=== PATIENT | female | born 1955 | race Caucasian/White ===

== ENCOUNTER 2025-03-20 14:34 | Inpatient (IN) | payer OTHER ==
[~2025-03-20] VITALS: Ht 160 cm; Wt 74.8 kg
[2025-03-20] MEDS: VANCOMYCIN 1G PREMIX 200 ML IV ONE (15:16)
[2025-03-20] MEDS: SODIUM CHLORIDE 0.9% 500 ML IV ONE (15:16)
[2025-03-20 15:47] LABS: INR 1.2
[2025-03-20 15:53] LABS: BASOPHILS % 0.6 % (0.0-2.0); EOSINOPHILS % 0.5 % (0.0-5.0); LYMPHOCYTES % 12.3 % (20.0-50.0); MEAN PLATELET VOLUME 11.4 fl (7.4-10.4); MONOCYTES % 8.1 % (2.0-8.0); NEUTROPHILS % 78.5 % (40.0-76.0); PLATELET 127 x1000/uL (130-400); RED BLOOD CELL COUNT 1.53 mill/uL (4.2-5.4); RED CELL DISTRIBUTION WIDTH 18.1 % (11.6-14.6)
[2025-03-20 15:54] LABS: PROTEIN TOTAL 6.0 g/dL (6.0-8.3); TROPONIN I HIGH SENSITIVITY 28 ng/L (3.0-34); UREA NITROGEN BLOOD 59 mg/dL (9-23)
[2025-03-20 15:55] LABS: ASPARTATE AMINOTRANSFERASE 28 IU/L (<34)
[2025-03-20 15:56] LABS: BILIRUBIN DIRECT 0.7 mg/dL (<=3.0); BILIRUBIN TOTAL 1.0 mg/dL (0.1-1.0)
[2025-03-20 16:06] LABS: CREATININE 6.4 mg/dL (0.6-1.0)
[2025-03-20 16:20] LABS: HEMATOCRIT. 15.0 % (36.0-48.0); HEMOGLOBIN. 4.8 g/dL (12.0-16.0)
[2025-03-20 17:57] LABS: TROPONIN I HIGH SENSITIVITY 26 ng/L (3.0-34)
[2025-03-20] MEDS ORDERED: IPRATROPIUM/ALBUTEROL 0.5-3(2.5)MG/3ML NEB HHN PRN (20:00)
[2025-03-20] MEDS ORDERED: DEXTROSE 50% WATER 50ML SYRINGE IV PRN (20:00)
[2025-03-20] MEDS ORDERED: GUAIFENESIN 200MG/10ML SUGAR FREE UDC PO PRN (20:00)
[2025-03-20] MEDS ORDERED: ACETAMINOPHEN 325MG TABLET PO PRN (20:00)
[2025-03-20] MEDS ORDERED: DOCUSATE SODIUM 100MG CAPSULE PO PRN (20:00)
[2025-03-20] MEDS ORDERED: ONDANSETRON HCL 4MG/2ML INJ IV PRN (20:00)
[2025-03-20] MEDS ORDERED: INSULIN LISPRO 100 UNITS/ML SUBCUT SCH (21:00)
[2025-03-20] MEDS: BLOOD SUGAR DIAGNOSTIC STRIP TEST SCH (21:00)
[2025-03-21] VITALS (22 sets, daily range): BP systolic 61–126; BP diastolic 21–79; PULSE 48–59; RESP 13–20; TEMP 36.114–36.55848; O2SAT 96–100
[2025-03-21] MEDS: INSULIN LISPRO 100 UNITS/ML SUBCUT SCH (00:34)
[2025-03-21] MEDS: CEFTRIAXONE 2GM/50ML 50 ML IV SCH (04:32)
[2025-03-21] MEDS: EPOETIN ALFA-EPBX 10,000 UNITS/ML VIAL SUBCUT SCH (04:43)
[2025-03-21] MEDS ORDERED: LACTULOSE 20G/30ML UDC PO SCH (06:00)
[2025-03-21] MEDS ORDERED: SODIUM CHLORIDE 0.9% 250 ML IV NR (08:00)
[2025-03-21] MEDS: MIDODRINE HCL 5MG TABLET PO SCH ×2 (08:05→09:00)
[2025-03-21 08:35] LABS: T4 FREE 1.48 ng/dL (0.89-1.76)
[2025-03-21 08:36] LABS: TRIGLYCERIDE 106 mg/dL (0-150); UREA NITROGEN BLOOD 56 mg/dL (9-23)
[2025-03-21 08:37] LABS: LDL CHOLESTEROL 40 mg/dL (5-100)
[2025-03-21 08:38] LABS: PHOSPHORUS 7.2 mg/dL (2.5-4.9)
[2025-03-21 08:45] LABS: CREATININE 6.6 mg/dL (0.6-1.0)
[2025-03-21 09:32] LABS: BASOPHILS % 0.9 % (0.0-2.0); EOSINOPHILS % 1.1 % (0.0-5.0); LYMPHOCYTES % 10.7 % (20.0-50.0); MEAN PLATELET VOLUME 11.4 fl (7.4-10.4); MONOCYTES % 9.7 % (2.0-8.0); NEUTROPHILS % 77.6 % (40.0-76.0); PLATELET 106 x1000/uL (130-400); RED BLOOD CELL COUNT 1.93 mill/uL (4.2-5.4); RED CELL DISTRIBUTION WIDTH 17.4 % (11.6-14.6)
[2025-03-21 09:38] LABS: HEMATOCRIT. 18.9 % (36.0-48.0); HEMOGLOBIN. 6.2 g/dL (12.0-16.0)
[2025-03-21] MEDS: PANTOPRAZOLE SODIUM 40 MG/VIAL IV SCH ×2 (10:03→20:56)
[2025-03-21] MEDS: LACTULOSE 20G/30ML UDC NG SCH ×2 (10:04→19:40)
[2025-03-21] MEDS: RIFAXIMIN 550 MG TABLET PO SCH (10:04)
[2025-03-21 11:32] LABS: TROPONIN I HIGH SENSITIVITY 37 ng/L (3.0-34)
[2025-03-21] MEDS ORDERED: OCTREOTIDE 1,000 MCG in SODIUM CHLORIDE 0.9% 98 ML IV SCH (13:30)
[2025-03-21] MEDS: FUROSEMIDE 40MG/4ML VIAL IVP NR (14:00)
[2025-03-21 17:32] LABS: BG BASE EXCESS -1.8 mmol/L (-2.0-3.0); BG CARBOXYHEMOGLOBIN 1.7 % (0.5-1.5); BG DEOXYHEMOGLOBIN 2.6 % (0.0-5.0); BG FRACTION INSPIRED OXYGEN 21; BG HCO3 ACT 21.5 mmol/L (21.0-28.0); BG METHEMOGLOBIN 0.3 % (0.5-1.5); BG OXYGEN SATURATION 97.3 % (94.0-98.0); BG OXYHEMOGLOBIN 95.4 % (94.0-98.0); BG PCO2 31.1 mmHg (32.0-45.0); BG PH 7.458 (7.350-7.450); BG PO2 88.5 mmHg (83.0-108.0); BG SAMPLE SITE LEFT BRACHIAL; BG TOTAL HEMOGLOBIN 9.0 g/dL (12.0-16.0); BG VENT MODE ROOM AIR
[2025-03-21 19:27] LABS: BASOPHILS % 0.8 % (0.0-2.0); EOSINOPHILS % 1.2 % (0.0-5.0); HEMATOCRIT. 25.7 % (36.0-48.0); HEMOGLOBIN. 8.4 g/dL (12.0-16.0); LYMPHOCYTES % 9.0 % (20.0-50.0); MEAN PLATELET VOLUME 10.9 fl (7.4-10.4); MONOCYTES % 10.3 % (2.0-8.0); NEUTROPHILS % 78.7 % (40.0-76.0); PLATELET 95 x1000/uL (130-400); RED BLOOD CELL COUNT 2.78 mill/uL (4.2-5.4); RED CELL DISTRIBUTION WIDTH 17.2 % (11.6-14.6)
[2025-03-21 19:45] LABS: LACTATE DEHYDROGENASE 219 IU/L (120-246)
[2025-03-21 19:46] LABS: PROTEIN TOTAL 6.3 g/dL (6.0-8.3); UREA NITROGEN BLOOD 62 mg/dL (9-23)
[2025-03-21 19:47] LABS: ASPARTATE AMINOTRANSFERASE 23 IU/L (<34)
[2025-03-21 19:48] LABS: BILIRUBIN TOTAL 2.0 mg/dL (0.1-1.0); PHOSPHORUS 7.6 mg/dL (2.5-4.9)
[2025-03-21 19:50] LABS: FOLIC ACID (FOLATE) SERUM 3.82 ng/mL (>5.38)
[2025-03-21 19:51] LABS: VITAMIN B12 SERUM 1413 pg/mL (211-911)
[2025-03-21 20:15] LABS: CREATININE 6.7 mg/dL (0.6-1.0)
[2025-03-21 20:22] LABS: HEPATITIS A AB IGM NEGATIVE (Negative)
[2025-03-21 20:23] LABS: HEPATITIS B CORE AB IGM NEGATIVE (Negative); HEPATITIS C AB NON REACTIVE (Neg) (Negative)
[2025-03-21 20:24] LABS: HEPATITIS A AB IGM NEGATIVE (Negative); HEPATITIS B CORE AB IGM NEGATIVE (Negative)
[2025-03-21 20:25] LABS: HEPATITIS C AB NON REACTIVE (Neg) (Negative)
[2025-03-21 20:27] LABS: TROPONIN I HIGH SENSITIVITY 38 ng/L (3.0-34)
[2025-03-21] MEDS: ATORVASTATIN CALCIUM 20MG TABLET PO SCH (20:57)
[2025-03-22] VITALS (19 sets, daily range): BP systolic 95–135; BP diastolic 35–78; PULSE 48–64; RESP 13–27; TEMP 36.16956–36.7; O2SAT 97–100
[2025-03-22 06:51] LABS: BASOPHILS % 0.7 % (0.0-2.0); EOSINOPHILS % 1.4 % (0.0-5.0); HEMATOCRIT. 24.9 % (36.0-48.0); HEMOGLOBIN. 8.2 g/dL (12.0-16.0); LYMPHOCYTES % 11.4 % (20.0-50.0); MEAN PLATELET VOLUME 10.6 fl (7.4-10.4); MONOCYTES % 13.0 % (2.0-8.0); NEUTROPHILS % 73.5 % (40.0-76.0); PLATELET 100 x1000/uL (130-400); RED BLOOD CELL COUNT 2.72 mill/uL (4.2-5.4); RED CELL DISTRIBUTION WIDTH 17.4 % (11.6-14.6)
[2025-03-22] MEDS ORDERED: SODIUM POLYSTYRENE SULFONATE 15 G/60 ML BOT PO ONE (07:45)
[2025-03-22] MEDS: ACETAMINOPHEN 325MG TABLET PO PRN (10:35)
[2025-03-22] MEDS: SODIUM ZIRCONIUM CYCLOSILICATE 10GM/PACKET PO SCH (10:35)
[2025-03-22 11:25] LABS: UREA NITROGEN BLOOD 69.0 mg/dL (9-23)
[2025-03-22 11:30] LABS: CREATININE 7.3 mg/dL (0.6-1.0)
[2025-03-22] MEDS: INSULIN GLARGINE 100 UNITS/ML SUBCUT SCH (21:28)
[2025-03-23] VITALS (7 sets, daily range): BP systolic 100–110; BP diastolic 41–63; PULSE 53–77; RESP 14–18; TEMP 36.7–36.72516; O2SAT 94–100
== END 2025-03-23 07:15 | disposition short-term general hospital (02) | DRG 441 ==
LOC: ER 14:34 → EDBEDREQ 15:00 → 5WST 18:41 → EDBEDREQTM 18:44 → EDBEDREQ 18:44 → 5EST 03-21 14:45
PROVIDERS: ADMIT Internal Medicine; ATTEND Internal Medicine
PROC: 30233N1 Transfusion of Nonautologous Red Blood Cells into Peripheral Vein, Percutaneous Approach (ICD-10-PCS; 2025-03-21)
PROC: 5A1D70Z Performance of Urinary Filtration, Intermittent, Less than 6 Hours Per Day (ICD-10-PCS; principal; 2025-03-22)
DX: K76.82 Hepatic encephalopathy (principal); N18.6 End stage renal disease; E72.20 Disorder of urea cycle metabolism, unspecified; K92.2 Gastrointestinal hemorrhage, unspecified; E87.20 Acidosis, unspecified; I12.0 Hypertensive chronic kidney disease with stage 5 chronic kidney disease or end stage renal disease; E83.39 Other disorders of phosphorus metabolism; D63.8 Anemia in other chronic diseases classified elsewhere; E83.41 Hypermagnesemia; D69.6 Thrombocytopenia, unspecified; Z99.2 Dependence on renal dialysis; K74.60 Unspecified cirrhosis of liver; E11.22 Type 2 diabetes mellitus with diabetic chronic kidney disease; E03.9 Hypothyroidism, unspecified; D50.0 Iron deficiency anemia secondary to blood loss (chronic); R18.8 Other ascites; E87.1 Hypo-osmolality and hyponatremia; E87.70 Fluid overload, unspecified; I48.0 Paroxysmal atrial fibrillation; I44.1 Atrioventricular block, second degree; R00.1 Bradycardia, unspecified; I95.9 Hypotension, unspecified; E78.00 Pure hypercholesterolemia, unspecified; K21.9 Gastro-esophageal reflux disease without esophagitis; E87.5 Hyperkalemia; Z90.11 Acquired absence of right breast and nipple; Z85.3 Personal history of malignant neoplasm of breast; Z79.4 Long term (current) use of insulin; Z79.899 Other long term (current) drug therapy; Z95.0 Presence of cardiac pacemaker
CPT/HCPCS: 36415; 36430; 36600; 71045; 80048; 80053; 80061; 80076; 82140; 82270; 82375; 82607; 82728; 82746; 82805; 82962; 83036; 83540; 83550; 83605; 83615; 83735; 83880; 84100; 84145; 84439; 84443; 84484; 85014; 85018; 85025; 85044; 86705; 86709; 86850; 86870; 86900; 86920; 87340; 90935; 93005; 93306; 96365; 96375; 99285; J0696; J0885; J1815; J2354; J2470; J3373; J7050; P9016